=== PATIENT | female | born 2000 | race Two or more races ===

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

== ENCOUNTER 2021-01-15 18:16 | Emergency (ER) | payer SELFPAY ==
[~2021-01-15] VITALS: Ht 157.5 cm; Wt 63.6 kg
[2021-01-15 18:51] VITALS: BP 103/62
[2021-01-15 19:03] LABS: BILIRUBIN,URINE SMALL (NEG); CLARITY,URINE CLOUDY; COLOR,URINE AMBER; NITRITE,URINE NEGATIVE (NEG); PROTEIN,URINE 30 mg/dL (NEG-TRACE)
[2021-01-15] MEDS ORDERED: ACETAMINOPHEN 500 MG TABLET PO ONE (19:15)
[2021-01-15] MEDS ORDERED: PHENAZOPYRIDINE 200 MG TABLET. PO ONE (19:15)
[2021-01-15 19:16] LABS: BACTERIA,URINE FEW /HPF (0-FEW)
--- NOTE | 2021-01-15 19:18 | PHYS DOC ---
Past Medical History Past Medical History: No Pertinent History Past Surgical History: No Surgical History Smoking Status: Never Smoker Alcohol Use: None Drug Use: None General Adult EDM: Chief Complaint: PAIN ON URINATION HPI: HPI: Patient is a 20 year old who presents to the ED with dysuria for last 4 days. She also has been having a fever for the last 2 days. Patient states that she was at work and was standing up for extended period of time and when she had to use the bathroom she had to strain in order to urinate. Patient states that when she lies on her back she has pain in her back as well. She denies any other associated symptoms or any alleviating factors There are no other complaints at this time. Review of Systems: Review of Systems: Constitutional: Denies fever or chills Eyes: Denies redness or eye pain HENT: Denies nasal congestion or sore throat Respiratory: Denies cough or shortness of breath Cardiovascular: Denies chest pain or palpitations GI: Denies abdominal pain, nausea, or vomiting : Positive for dysuria; denies hematuria Musculoskeletal: Positive for back pain; denies flank pain Integument: Denies rash or skin lesions Neurologic: Denies headache, focal weakness or sensory changes Complete systems were reviewed and found to be within normal limits, except as documented in this note. [] Current Medications: Current Medications Medications (Trade) Dose Ordered Sig/Jamal Start Time Stop Time Status Last Admin Dose Admin Acetaminophen (Tylenol) 500 mg 1X ONCE 01/15/21 19:15 01/15/21 19:16 Phenazopyridine HCl (Pyridium) 200 mg 1X ONCE 01/15/21 19:15 01/15/21 19:16 Allergies: Allergies: Allergies Coded Allergies Type Severity Reaction Last Updated Verified No Known Drug Allergies 09/14/19 No Physical Exam: PE: Constitutional: Well developed, well nourished, no acute distress, non-toxic appearance HENT: Normocephalic, atraumatic Eyes: Conjunctiva normal, no discharge Neck: Normal range of motion, supple Lungs & Thorax: No respiratory distress, equal chest rise and fall Abdomen: Soft, no tenderness 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, 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, no discharge or bleeding noted in vaginal vault, no CMT, left adnexal tenderness Skin: Warm, dry, no erythema, no rash Back: Lower back paraspinal tenderness, no CVA tenderness Extremities: No tenderness, ROM intact, no edema Neurologic: Alert and oriented X 3, normal motor function, normal sensory function, no focal deficits noted Psychologic: Affect normal, judgment normal Current Patient Data: Labs: Laboratory Tests Test 01/15/21 19:04 POC Urine HCG, Qualitative Hcg negative (Negative) Vital Signs: Vital Signs Date Time Temp Pulse Resp B/P (MAP) Pulse Ox O2 Delivery O2 Flow Rate FiO2 01/15/21 18:51 100.6 120 18 103/62 (76) 99 Room Air 100.6 EKG: EKG: [] Radiology/Procedures: Radiology/Procedures: PROCEDURE: PELVIS COMPLETE US PELVIS COMPLETE History: Reason: left adnexal pain and fever Instructions: / History: Comparison: None Technique: Grayscale and color Doppler imaging of the pelvis was performed using transabdominal technique. Findings: The uterus measures 6.9 x 5.0 x 3.6 cm. Uterus has an unremarkable appearance. The endometrial stripe measures 6 mm. Right ovary measures 2.2 x 1.8 x 1.5 cm. Left ovary measures 3.7 x 2.8 x 2.6 cm. Normal Doppler flow to the ovaries. No adnexal masses are seen. Targeted ultrasound of the left lower abdomen in the region of the patient's clinical concern demonstrates no fluid collection or mass. IMPRESSION: 1. Unremarkable pelvic ultrasound. Electronically signed by: Fazal Beavers DO (01/15/2021 9:34 PM) [facility] Course & Med Decision Making: Course & Med Decision Making Pertinent Labs and Imaging studies reviewed. (See chart for details) Patient presents with report of dysuria. UA without significant signs of infection. Contamination noted. Urine negative. Patient does express concern for possible STDs. Denies vaginal discharge or bleeding. Pelvic exam performed. Chlamydia/gonorrhea cultures pending. Empiric antibiotics provided. Wet mount negative. Patient reporting significant left adnexal tenderness on palpation. Pelvic ultrasound without acute process noted. Fever addressed with interval improvement. Patient stable for discharge with outpatient follow-up with PCP. Discussed findings and plan with patient, who acknowledges understanding and agreement. Julio Disclaimer: Julio Disclaimer: This electronic medical record was generated, in whole or in part, using a voice recognition dictation system. Departure Departure Impression: Primary Impression: Dysuria Additional Impressions: Concern about STD in female without diagnosis Fever Qualified Codes: R50.9 - Fever, unspecified Disposition: 01 DC HOME SELF CARE/HOMELESS Condition: STABLE Referrals: NO PCP (PCP) Patient Instructions: Dysuria, Fever, Adult, [id number], Sexually Transmitted Disease, [id number] Additional Instructions: Take over the counter Tylenol and/or Ibuprofen for pain or for fever. Scripts Cephalexin (CEPHALEXIN) 500 Mg Capsule 1 CAP PO TID for 7 Days, #21 CAP Prov: ENZO RHODES DO 01/15/21 Phenazopyridine Hcl (PYRIDIUM) 200 Mg Tablet 200 MG PO TID for 2 Days, #6 TAB Prov: ENZO RHODES DO 01/15/21 ENZO RHODES DO Jan 15, 2021 19:18
[2021-01-15] MEDS ORDERED: AZITHROMYCIN 250 MG TABLET. PO ONE (19:45)
[2021-01-15] MEDS ORDERED: cefTRIAXone IM 500 MG VIAL. IM ONE (19:45)
--- NOTE | 2021-01-15 21:36 | RAD ---
US PELVIS COMPLETE History: Reason: left adnexal pain and fever Instructions: / History: Comparison: None Technique: Grayscale and color Doppler imaging of the pelvis was performed using transabdominal tech nique. Findings: The uterus measures 6.9 x 5.0 x 3.6 cm. Uterus has an unremarkable appearance. The endometrial stri pe measures 6 mm. Right ovary measures 2.2 x 1.8 x 1.5 cm. Left ovary measures 3.7 x 2.8 x 2.6 cm. Normal Doppler flow to the ovaries. No adnexal masses are seen. Targeted ultrasound of the left lower abdomen in the region of the patient's clinical concern demonst rates no fluid collection or mass. IMPRESSION: 1. Unremarkable pelvic ultrasound. Electronically signed by: Fazal Beavers DO (01/15/2021 9:34 PM) [facility]
[2021-01-15] MEDS ORDERED: CEPH500C PO (21:43)
[2021-01-15] MEDS ORDERED: PHEN-318 PO (21:43)
== END 2021-01-15 21:50 | disposition home or self-care (01) ==
LOC: ER 18:16
DX: R30.0 Dysuria (principal); Z20.2 Contact with and (suspected) exposure to infections with a predominantly sexual mode of transmission; R50.9 Fever, unspecified
CPT/HCPCS: 76856; 81001; 81025; 87086; 87491; 87591; 96372; 99284; J0696; Q0111

== ENCOUNTER 2022-04-05 10:23 | Emergency (ER) | payer SELFPAY ==
[~2022-04-05 10:23] MED LIST changes: +CEPH500C PO; +PHEN-318 PO
== END 2022-04-05 13:24 | disposition left against medical advice (07) ==
LOC: ER 10:23
DX: N64.4 Mastodynia (principal); Z53.21 Procedure and treatment not carried out due to patient leaving prior to being seen by health care provider